=== PATIENT | female | born 2000 | race Caucasian/White ===

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

== ENCOUNTER → 2018-03-09 | Outpatient (REF) ==
--- NOTE | 2018-03-09 14:36 | Diagnostic Imaging Report ---
INDICATION: Positive TB skin test. TIME OF EXAM: 1:25 PM No prior studies are available for comparison. FINDINGS: The heart size is normal. The lungs are clear. No findings to suggest tuberculosis are seen. There is no effusion or pneumothorax. IMPRESSION: No acute abnormality is detected. Dictated by: Dictated on workstation # [id number]
== END | disposition home or self-care (01) ==
LOC: RAD 12:34
PROVIDERS: ATTEND Family Medicine
CPT/HCPCS: 71046